=== PATIENT | female | born 1980 | race Caucasian/White ===

== ENCOUNTER → 2019-04-28 | Outpatient (CLI) | payer OTHER ==
[~2019-04-28] MED LIST: ALBIPROI INH; ALPR.5 PO; AMIT50 PO; AMOX500 PO; AMPDEX10CR PO; AMPDEX5; ATOM40 PO; AZIT250 PO; Amphetamine Sal20 MG PO; BUSP15 PO; CELE100 PO; CEPH500 PO; CHLO25 PO; CLIN150 PO; CLIN300 PO; CLON.1 PO; CLON1; CODACE30 PO; CRUTCH4 USE; DULO30; DULO30 PO; Dazidox10 MG PO; ERYES400 PO; ERYT333ERA PO; ESTR.1TPW TOP; FLUO20 PO; GABA100; GABA300 PO; HYDACE5 PO; HYDACE7.5 PO; HYDGUAL120 PO; HYDPAM25 PO; HYDPAM50 PO; IBUP200; IBUP600 PO; IBUP800 PO; KETO10 PO; LEVFLO500 PO; Lasix40 MG PO; METH10; METH40; METPHE10 PO; MULVITMINE; NAPR500 PO; NAPR550 PO; NUVA RING; OMEP20ER PO; OTC COLD MED; OXYACE5C PO; OXYACE5T PO; OXYACE7.5T PO; OXYC10ER PO; OXYC5 PO; Omeprazole20 M1 PO; PARO25; PROACE100 PO; PROM25 PO; PSEU30 PO; Percocet 10-321 EACH PO; RANI150 PO; RXHYDGUAS PO; RXOXYACE PO; RXPROACE PO; RXTRAM50 PO; Robaxin500 MG PO; Roxicodone5 MG PO; SOMA250 MG; SULTRIDS PO; TRAM50 PO; Ultram50 MG PO; XANAX0.25 MG; Zofran Odt4 MG SL
[2019-04-28 17:57] LABS: BASOPHILS ABSOLUTE AUTO 0.03 K/mm3 (0.00-0.23); BASOPHILS PERCENT AUTO 0 % (0-2); EOSINOPHILS ABSOLUTE AUTO 0.13 K/mm3 (0.00-0.68); EOSINOPHILS PERCENT AUTO 2 % (0-6); Hemoglobin 12.6 g/dL (11.5-16.0); IMMATURE GRAN ABSOLUTE AUTO 0.03 K/mm3 (0.00-0.10); IMMATURE GRAN PERCENT AUTO 0 % (0-1); LYMPHOCYTES ABSOLUTE AUTO 1.52 K/mm3 (0.84-5.20); LYMPHOCYTES PERCENT AUTO 18 % (21-46); MONOCYTES PERCENT AUTO 12 % (4-13); Mean Corpuscular HGB Conc 34.1 g/dL (31.5-36.5); Mean Corpuscular Volume 88 fL (80-100); Mean Platelet Volume 9.5 fL (9.1-12.4); NEUTROPHILS ABSOLUTE AUTO 5.78 K/mm3 (1.96-9.15); NEUTROPHILS PERCENT AUTO 68 % (41-73); Platelet Count 302 K/mm3 (150-400); RDW Standard Deviation 35.2 fL (35.1-46.3); White Blood Cell Count 8.49 K/mm3 (4.00-11.30)
[2019-04-28 18:12] LABS: Alanine Aminotransfer (ALT/SGP 22 U/L (12-78); Albumin, Blood 3.8 g/dL (3.4-5.0); Alk Phos 67 U/L (50-136); Anion Gap 6 mmol/L (6-16); Aspartate Aminotrans (AST/SGOT 18 U/L (12-37); Bilirubin, Total 0.4 mg/dL (0.1-1.0); Blood Urea Nitrogen 16 mg/dL (8-24); Bun/Creatinine Ratio 23.6 (12.0-20.0); CO2, Blood 30 mmol/L (21-32); Calcium, Blood 8.4 mg/dL (8.5-10.1); Chloride, Blood 98 mmol/L (98-108); Creatinine, Blood 0.68 mg/dL (0.40-1.00); Globulin, Blood 3.8 g/dL (2.2-4.0); Glomerular Filtration Rate >60 (60-); Glucose, Blood 100 mg/dL (70-99); Sodium, Blood 134 mmol/L (136-145); Total Protein, Blood 7.6 g/dL (6.4-8.2)
== END | disposition home or self-care (01) ==
LOC: LAB SHORT 17:00 → LAB 17:00
PROVIDERS: General Practice
DX: R60.0 Localized edema (principal)
CPT/HCPCS: 80053; 85025

== ENCOUNTER → 2020-05-14 | Outpatient (CLI) | payer OTHER | LOC: LAB SHORT 12:23 | DX: J02.9 Acute pharyngitis, unspecified (principal) | CPT/HCPCS: 87081 ==

== ENCOUNTER 2021-07-13 07:53 | Day surgery (SDC) | payer OTHER ==
[~2021-07-13] VITALS: Ht 165.1 cm; Wt 82.9 kg
--- NOTE | 2021-07-13 08:14 | NUR ---
History, Chart, Medications and Allergies reviewed before start of procedure. Patient confirms NPO status and agrees with scheduled surgery. Reports taking all of colon prep with clear results. Lungs clear T/O to Auscultation. Patient States Post-Procedure ride home has been arranged with her .
[2021-07-13] MEDS ORDERED: METH40 PO (08:19)
--- NOTE | 2021-07-13 10:12 | NUR ---
PT TO STEP. DENIES C/O PAIN OR NAUSEA. TOLERATING PO.
--- NOTE | 2021-07-13 10:28 | NUR ---
WRITTEN AND VERBAL D/C INSTUCTIONS GIVEN TO PT WITH STATED UNDERSTANDING.
--- NOTE | 2021-07-13 10:53 | NUR ---
07/13/21 1053 Luisa Steward History, Chart, Medications and Allergies reviewed before start of procedure. Patient confirms NPO status and agrees with scheduled surgery. 3-LEAD EKG REVIEWED WITH PHYSICIAN PRIOR TO START OF PROCEDURE. MONITOR INTACT WITH CONTINUOUS PULSE OXIMETRY AND INTERMITTENT BP. PATIENT DETERMINED TO BE ASA APPROPRIATE FOR PROPOFOL SEDATION PRIOR TO START OF PROCEDURE BY DR. ZIEGLER.
== END 2021-07-13 10:44 | disposition home or self-care (01) ==
LOC: ORSCMMR 07:53 → ORSCSDS 09:00 → ORSCMMR 10:44
PROVIDERS: Student in an Organized Health Care Education/Training Program
PROC: 0DBN8ZX Excision of Sigmoid Colon, Via Natural or Artificial Opening Endoscopic, Diagnostic (ICD-10-PCS; principal; 2021-07-13 09:00)
PROC: 0DB78ZX Excision of Stomach, Pylorus, Via Natural or Artificial Opening Endoscopic, Diagnostic (ICD-10-PCS; principal; 2021-07-13 09:00)
PROC: 0DBL8ZX Excision of Transverse Colon, Via Natural or Artificial Opening Endoscopic, Diagnostic (ICD-10-PCS; principal; 2021-07-13 09:00)
PROC: 0DBK8ZX Excision of Ascending Colon, Via Natural or Artificial Opening Endoscopic, Diagnostic (ICD-10-PCS; principal; 2021-07-13 09:00)
DX: K92.1 Melena (principal); K21.9 Gastro-esophageal reflux disease without esophagitis; R15.0 Incomplete defecation; R11.2 Nausea with vomiting, unspecified; D12.2 Benign neoplasm of ascending colon; D12.3 Benign neoplasm of transverse colon; D12.5 Benign neoplasm of sigmoid colon; Z79.899 Other long term (current) drug therapy
CPT/HCPCS: 88305; 88342; J2250; J2704; J7120

== ENCOUNTER 2024-05-19 11:39 | Emergency (ER) | payer OTHER ==
[~2024-05-19] VITALS: Ht 162.6 cm; Wt 83.9 kg
[~2024-05-19 11:39] MED LIST changes: +METH40 PO
[2024-05-19 12:10] VITALS: BP 129/93
== END 2024-05-19 12:16 | disposition home or self-care (01) ==
LOC: ER 11:39
DX: Z11.7 Encounter for testing for latent tuberculosis infection (principal); Z79.899 Other long term (current) drug therapy; Z88.5 Allergy status to narcotic agent; Z88.0 Allergy status to penicillin
CPT/HCPCS: 99281